=== PATIENT | female | born 1960 | race Caucasian/White ===

== ENCOUNTER → 2016-12-03 | Outpatient (CLI) | payer BC ==
[~2016-12-03] MED LIST: ATOR20TA58 PO; BUPIVACAINE MPF 0.25% 10 ML VIAL. ONE; BUTA1CAP31 PO; CITA10TA4 PO; CITA40TA5 PO; CYCL10TA2 PO; DIAZ2TAB PO; FENO54TA PO; FLECTOR1 EACH TD; HYDR-2165 PO; HYDR-2766 PO; IOHEXOL 180 MG/ML 10 ML VIAL. ONE; TRAM50TA PO; TRAZ50TA15 PO; methylPREDNISolone ACETATE 80 MG/ML VIAL. ONE
--- NOTE | 2016-12-04 04:19 | PAIN ---
DATE OF SERVICE: 12/03/2016 CHIEF COMPLAINT: Left hip joint pain. HISTORY OF PRESENT ILLNESS: This is a 55-year-old female who presents with history of pain in the left hip joint for about 3-4 years, on and off, getting worse over the past 6 months or so. The patient reports this has been increasing with activity, walking, standing, especially climbing stairs, putting all of her weight on one leg or bending down reaching things on her left side. The patient reports it has been getting worse. She has been doing some exercises and stretching, has not had any formal physical therapy or other treatments for training, modalities with physical therapy, but is trying to stay as active as she can, but the pain is beginning to limit her fairly significantly especially with standing and walking, climbing stairs, stepping up on a step from the street, etc. The patient reports the pain is sharp, stabbing, throbbing, changes during the day, worse with activity, intermittent in intensity, stabbing into the left hip and groin, mostly anterior but also into the gluteus with extended standing or walking. The patient reports it is better with lying down, but can awaken her from sleep if she does not take her sleeping medication. The patient reports it does not affect her bowel or bladder control, but does affect her ability to walk; she has been considering using a cane and she has one that she has not had with her today, she is using in her right hand. The patient reports no recent injury or accident. No motor or sensory loss. No bowel or bladder incontinence. The patient rates her disability rating from 0 to 10, 10 being the worst, the 4 with family and home responsibilities and recreation, 3 with social activity and occupation, 10 with sexual behavior, 2 with self care and 0 with life support activities. The patient has tried hydrocodone, tramadol, Fioricet, diclofenac, all of which do help, but only by about 20-25% improvement. The patient did have x-ray showing some significant loss of intra-articular space and advanced degenerative joint disease of the right hip. The patient has seen her orthopedist who is recommending eventual hip replacement. The patient would like to try other modalities first. PAST MEDICAL HISTORY: Significant for arthritis, hypertension, cigarette smoking, quit 20 years ago. PREVIOUS SURGERIES: Include right great toe surgery, oophorectomy, salpingectomy and previous bladder lift, also uterine ablation prior to the hysterectomy. CURRENT MEDICATIONS: Include tramadol, citalopram, hydrocodone, trazodone, cyclobenzaprine, Fiorinal, atorvastatin and fenofibrate. ALLERGIES: The patient has no known drug allergies. FAMILY HISTORY: Significant for heart disease and diabetes. SOCIAL HISTORY: The patient does not smoke, quit many years ago. Drinks only very rarely alcohol. Reports she is currently single, no children living at home and lives with her mother locally in [place], [place]. REVIEW OF SYSTEMS: The patient's review of systems is positive for those items mentioned in history of present illness. All systems reviewed and otherwise negative. It is complete, full and well documented on the patient's chart. PHYSICAL EXAMINATION: VITAL SIGNS: The patient's blood pressure is 140/94, pulse 75, respirations 16, temperature is 98.1 degrees Fahrenheit. Weight is 178 pounds. GENERAL: The patient is awake, alert, oriented, appropriate, is a very pleasant demeanor. HEENT: Head shows normocephalic, atraumatic. Extraocular movements are intact and symmetrical. Oral cavity shows mucous membranes moist and pink. Dentition is intact. NECK: Shows anterior throat is supple without palpable lymphadenopathy noted. Swallow reflex is symmetrical. CHEST: Shows normal on inspection. Breath sounds are clear to auscultation bilaterally. HEART: Shows S1 and S2 clear. No murmurs auscultated. ABDOMEN: Soft, nontender, nondistended. No palpable organomegaly. No rebound or guarding demonstrated. MUSCULOSKELETAL: Back shows spine grossly in the midline. Normal appearing thoracic kyphosis, cervical lordotic curvature and lumbar lordotic curvature. No previous bruises, lesions, rashes or scars are noted. The patient's lower extremity showed deep tendon reflexes 2+ in the patellar, 1+ tendo calcaneus tendons. Motor exam is strong with 5/5 dorsiflexion, extension, quadriceps and hamstring flexion, also mild pain reported with quadriceps flexion on the left, but only minimal. Peripheral pulses are 2+ posterior tibial and dorsalis pedis pulses. No peripheral edema is noted. No clubbing, no cyanosis. Lower extremities are warm and dry to touch, equal in color and appearance. Gaenslen maneuver is negative bilaterally. Jj maneuver, however, is positive with external rotation of the left hip with hip flexion and external deviation with significant pain in the groin itself as well as radiating into the gluteus. Right side is negative Jj test. The patient is able to stand, has no difficulty trying to stand on her toes, not loosing balance. She is walking with a normal appearing gait without significant favoring the right or left lower extremity on a short walk in the office today, again not using a cane with her, but has one she uses in her right hand on occasion. IMPRESSION: 1. This is a 55-year-old female with a 3- to 4-year history of pain, left hip and groin, worse now over the past 6 months or so. 2. Radiological studies, joints, advanced severe degenerative joint disease of the left hip as noted. 3. History of arthritis. 4. Hypertension. PLAN: Options were discussed with the patient including conservative medical management, physical therapy, interventional techniques. She would like to pursue interventional techniques. We discussed an intra-articular joint injection of the left hip joint using description as well as anatomical models to describe the procedure. Risks were then discussed including, but not limited to bleeding, infection, possibility of intravascular injection sequelae, spread of local anesthetic and numbness, exposure to fluoroscopy, side effects of steroid medication and poor results regarding pain control. The patient understands and wishes to proceed. The patient will return to the clinic in approximately 3-4 weeks for a followup. Would like to call for her next appointment as necessary. The patient was encouraged to increase her activity as tolerated and to do nonimpact style aerobics with her left lower extremity such as pool therapies, stationary bicycle or very light walking on level surfaces. The patient understands and will follow up at this time on an as-needed basis. DIAGNOSIS: Primary osteoarthritis, left hip joint. PROCEDURE: Left intra-articular hip joint injection with fluoroscopic guidance under sterile prep and drape using local anesthetic. MEDICATION INJECTED: Total of 80 mg of Depo-Medrol plus total of 3 mL of 0.25% bupivacaine and total of 3 mL of Isovue for contrast. CONDITION AT DISCHARGE: Stable. The patient tolerated procedure well, had no complications. ROSA ISELA CORRIGAN MD DR: REAL/hayden JOB#: [id number] / [id number] WILMA Hinkle MD
== END | disposition home or self-care (01) ==
LOC: PNCL 14:02
PROVIDERS: ATTEND Anesthesiology
DX: M16.12 Unilateral primary osteoarthritis, left hip (principal); I10 Essential (primary) hypertension; Z87.891 Personal history of nicotine dependence; Z83.3 Family history of diabetes mellitus
CPT/HCPCS: 20610; J1040; J3490

== ENCOUNTER → 2017-01-29 | Outpatient (CLI) | payer BC ==
--- NOTE | 2017-01-29 18:52 | PAIN ---
DATE OF SERVICE: 01/29/2017 DIAGNOSIS: Left hip joint pain with primary osteoarthritis of left hip joint. HISTORY OF PRESENT ILLNESS: The patient is a 56-year-old female who returns for followup status post left hip joint injection on 12/03/2016. The patient did very well with this with good significant improvement about 80% initially, now is down to about a 50% improvement level as time is going on. For the past couple of months, the patient reports the pain is becoming much worse. Over the past week, it was at a point where she almost went to the Emergency Department because of the pain, but her daughter had some pain medication, which she borrowed and I was able to decrease the pain enough to wait until today to come in. The patient reports significant pain in the left hip, worse with standing, walking, weightbearing, especially putting weight on one leg such as climbing stairs or stepping up on a curb. The patient reports pain is a 9 on a scale of 10 at its worst, 7 on average, 4 at its least and is a 7 today. The patient reports it is stabbing and sharp, getting unbearable, especially at night when she is lying on her left side and is awakening her from sleep frequently. The patient reports no new motor or sensory deficits; however, no new bowel or bladder incontinence, but still significant pain, again much worse with activity, standing, walking; better with sitting or lying down on her right side by lying flat, no new motor or sensory deficits. PHYSICAL EXAMINATION: VITAL SIGNS: The patient's blood pressure 140/96, pulse 69, respirations 18, temperature 97.7 degrees Fahrenheit, height is 5 feet 8-1/2 inches, weight is 179 pounds. GENERAL: The patient is awake, alert, oriented, appropriate, very pleasant demeanor. HEENT: Head shows normocephalic, atraumatic. Extraocular movements are intact and symmetrical. Oral cavity, mucous membranes are moist and pink. Dentition is intact. NECK: Shows anterior throat supple without palpable lymphadenopathy noted. Swallow reflex is symmetrical. CHEST: Shows normal on inspection. Breath sounds are clear to auscultation bilaterally. HEART: Shows S1 and S2 clear. No murmurs auscultated. ABDOMEN: Soft, nontender, nondistended. No palpable organomegaly is noted. No rebound or guarding demonstrated. BACK: Shows spine grossly in the midline. Lumbar paraspinous muscle shows symmetrical on inspection, palpation shows no significant tenderness. The patient has full rotational motion of lumbar spine, both laterally as well as extension and flexion without difficulty. LOWER EXTREMITIES: Showed deep tendon reflexes at 2+ in the patellar tendons. Motor exam is strong with 5/5 dorsiflexion, extension, quadriceps and hamstring flexion. The patient does still have positive Jj's maneuver on the left with external rotation of the left hip, but not on the right. Peripheral pulses are 1+ posterior tibial. No peripheral edema is noted bilaterally. Options were discussed with the patient and the patient's old chart was reviewed as her current medication regimen updated. Current review of systems is updated today as well. We will proceed with the left intra-articular hip joint injection using C-arm fluoroscopy. Risks were again discussed including, but not limited to bleeding, infection, possibility of intravascular injection sequelae, spread of local anesthetic and numbness, side effects of steroid medications, exposure to fluoroscopy and poor results regarding pain control. The patient understands and wishes to proceed. The patient will return to clinic in approximately 2 weeks or as necessary, would like to call for next appointment. The patient was counseled as to activity levels as well as side effects to be aware of. DIAGNOSIS: Primary osteoarthritis, left hip joint with left hip joint pain. PROCEDURE: Left intra-articular hip joint injection using C-arm fluoroscopic guidance under sterile prep and drape using local anesthetic. MEDICATION INJECTED: A total of 80 mg Depo-Medrol plus 3 mL of 0.25% bupivacaine after negative aspiration and 2 mL of Isovue for contrast. CONDITION AT DISCHARGE: Stable. The patient tolerated procedure well, had no complications. ROSA ISELA CORRIGAN MD DR: REAL/hayden JOB#: [id number] / [id number]
== END | disposition home or self-care (01) ==
LOC: PNCL 08:23
PROVIDERS: ATTEND Anesthesiology
DX: M16.12 Unilateral primary osteoarthritis, left hip (principal)
CPT/HCPCS: 20610; J1040; J3490

== ENCOUNTER → 2017-06-17 | Outpatient (CLI) | payer BC ==
[2017-06-17 09:46] LABS: INR 0.9 (0.8-1.1); PARTIAL THROMBOPLASTIN TIME 32 SEC (24-38); PROTHROMBIN TIME PATIENT 12.1 SEC (11.7-14.0)
[2017-06-17 11:29] LABS: SEDIMENTATION RATE 8 (0-25)
[2017-06-17 11:43] LABS: BILIRUBIN,URINE NEGATIVE (NEG); CLARITY,URINE CLEAR; COLOR,URINE YELLOW; GLUCOSE,URINE 100 mg/dL (NEG); NITRITE,URINE NEGATIVE (NEG); PH,URINE 6.5; PROTEIN,URINE NEGATIVE (NEG-TRACE); UROBILINOGEN,URINE 0.2 mg/dL (0.2 mg/dL)
[2017-06-17 12:03] LABS: BACTERIA,URINE 0 /HPF (0-FEW); RBC,URINE 0 /HPF (0-2); SQUAMOUS EPITHELIAL CELL,UR FEW /LPF; WBC,URINE 0 /HPF (0-4)
[2017-06-18 03:14] LABS: MRSA BY PCR Negative (Negative)
== END | disposition home or self-care (01) ==
LOC: SURGPAT 14:57
DX: Z01.818 Encounter for other preprocedural examination (principal); I10 Essential (primary) hypertension; R94.31 Abnormal electrocardiogram [ECG] [EKG]
CPT/HCPCS: 36415; 71046; 81001; 85610; 85651; 85730; 87641; 93005

== ENCOUNTER 2017-07-02 10:26 | Inpatient (IN) | payer BC ==
[~2017-07-02 10:26] MED LIST changes: -ATOR20TA58 PO; -BUPIVACAINE MPF 0.25% 10 ML VIAL. ONE; -BUTA1CAP31 PO; -CITA10TA4 PO; -CITA40TA5 PO; -CYCL10TA2 PO; +DEXAMETHASONE SOD PHOS 20 MG/5 ML VIAL.; -DIAZ2TAB PO; +FAMOTIDINE 20 MG/2 ML VIAL; -FENO54TA PO; -FLECTOR1 EACH TD; -HYDR-2165 PO; -HYDR-2766 PO; +HYDROcodone/APAP 7.5/325MG 1 TAB TABLET PO; -IOHEXOL 180 MG/ML 10 ML VIAL. ONE; +LIDOCAINE 1% PF 2 ML VIAL. ID; +MIDAZOLAM HCL/PF 2 MG/2 ML VIAL.; +ONDANSETRON PF 4 MG/2 ML VIAL.; +ONDANSETRON PF 4 MG/2 ML VIAL. IV; +PROPOFOL 20 ML IV; -TRAM50TA PO; -TRAZ50TA15 PO; +fentaNYL PF VIAL 100 MCG/2 ML VIAL IV; +fentaNYL PF VIAL 250 MCG/5 ML VIAL; -methylPREDNISolone ACETATE 80 MG/ML VIAL. ONE
[2017-07-02] MEDS: IV RINGERS,LACTATED 1000ML 1,000 ML IV (11:28)
[2017-07-02] MEDS: CELECOXIB 200 MG CAPSULE. PO ×2 (11:28→21:11)
[2017-07-02 11:45] LABS: PARTIAL THROMBOPLASTIN TIME 31 SEC (24-38); PROTHROMBIN TIME PATIENT 12.6 SEC (11.7-14.0)
[2017-07-02] MEDS ORDERED: CALCIUM CARBONATE 500 MG TAB.CHEW PO (12:15)
[2017-07-02] MEDS ORDERED: MORPHINE SULFATE 4 MG/ML DISP.SYRIN. IV ×2 (12:15)
[2017-07-02] MEDS ORDERED: DEXTROSE 50% 25 GM / 50ML DISP.SYRIN. IV (12:15)
[2017-07-02] MEDS ORDERED: PROCHLORPERAZINE 10 MG/2 ML VIAL. IV (12:15)
[2017-07-02] MEDS ORDERED: fentaNYL PF VIAL 100 MCG/2 ML VIAL IV (12:15)
[2017-07-02] MEDS ORDERED: traMADol 50 MG TABLET PO ×2 (12:15)
[2017-07-02] MEDS ORDERED: ACETAMINOPHEN 325 MG TABLET. PO (12:15)
[2017-07-02] MEDS ORDERED: 0.9 % SODIUM CHLORIDE 10 ML DISP.SYRIN. IV (12:15)
[2017-07-02] MEDS ORDERED: ePHEDrine PF IN SALINE 50 MG/5 ML DISP.SYRIN IV (12:29)
[2017-07-02] MEDS: TRANEXAMIC ACID 1,000 MG in IV NS 50ML -- 1ST BAG INJ (12:36)
[2017-07-02] MEDS: MORPHINE SULFATE 5 MG, KETOROLAC 30 MG, ROPIVacaine 0.5% PF 60 ML, EPINEPHrine 0.5 MG i... INT ART (12:39)
[2017-07-02] MEDS ORDERED: SEVOFLURANE > 120 MINUTES. IH (14:09)
[2017-07-02] MEDS ORDERED: fentaNYL PF VIAL 100 MCG/2 ML VIAL ×3 (14:14→15:44)
[2017-07-02] MEDS: TRANEXAMIC ACID 1,000 MG in IV NS 50ML -- 2ND BAG INJ (14:40)
[2017-07-02] MEDS: SENNOSIDES/DOCUSATE 8.6/50MG TABLET. PO (15:00)
[2017-07-02] MEDS ORDERED: MORPHINE SULFATE 10 MG/ML VIAL. (15:13)
[2017-07-02] MEDS: fentaNYL PF VIAL 100 MCG/2 ML VIAL IV ×8 (15:27→23:07)
[2017-07-02] MEDS ORDERED: PROCHLORPERAZINE 10 MG/2 ML VIAL. (15:31)
[2017-07-02] MEDS ORDERED: MORPHINE SULFATE 4 MG/ML DISP.SYRIN. (15:31)
[2017-07-02] MEDS: MORPHINE SULFATE 4 MG/ML DISP.SYRIN. IV (15:41)
[2017-07-02] MEDS: PROCHLORPERAZINE 10 MG/2 ML VIAL. IV (15:41)
[2017-07-02] MEDS: FERROUS SULFATE 325 MG TABLET. PO (17:00)
[2017-07-02] MEDS: WARFARIN 7.5 MG TABLET. PO (17:22)
[2017-07-02] MEDS: FENOFIBRATE 54 MG TABLET. PO (17:22)
[2017-07-02] MEDS: LISINOPRIL 5 MG TABLET. PO (17:23)
[2017-07-02] MEDS: KETOROLAC 30 MG, BUPIVACAINE MPF 0.25% 20 ML, EPINEPHrine 0.5 MG in TOTAL VOLUME SYRING... INT ART (17:24)
[2017-07-02] MEDS: CALCIUM CARB/VIT D3 500/200 TABLET. PO ×2 (21:00→21:11)
[2017-07-02] MEDS: traZODone 50 MG TABLET. PO (21:11)
[2017-07-02] MEDS: ATORVASTATIN CALCIUM 20 MG TABLET PO (21:11)
[2017-07-02] MEDS: diphenhydrAMINE 50 MG/ML VIAL IV (21:11)
[2017-07-02] MEDS: CITALOPRAM 20 MG TABLET. PO (21:11)
[2017-07-02] MEDS: IV DEXTROSE 5 %-0.45 % NACL 1,000 ML IV (22:06)
[2017-07-02] MEDS: ZOLPIDEM 5 MG TABLET. PO (23:03)
[2017-07-03] MEDS: fentaNYL PF VIAL 100 MCG/2 ML VIAL IV ×3 (03:29→21:32)
[2017-07-03] MEDS: KETOROLAC 30 MG, BUPIVACAINE MPF 0.25% 20 ML, EPINEPHrine 0.5 MG in TOTAL VOLUME SYRING... INT ART (05:13)
[2017-07-03 05:55] LABS: INR 1.1 (0.8-1.1)
[2017-07-03] MEDS ORDERED: MAGNESIUM HYDROXIDE 2,400 MG/30 ML ORAL.SUSP. PO (06:00)
[2017-07-03] MEDS: IV DEXTROSE 5 %-0.45 % NACL 1,000 ML IV ×4 (06:34→21:32)
[2017-07-03] MEDS: oxyCODONE/APAP 5/325 1 TAB TABLET PO ×2 (06:39→15:17)
[2017-07-03] MEDS: MULTIVITAMIN with MINERAL TABLET. PO ×2 (08:25→08:50)
[2017-07-03] MEDS: FERROUS SULFATE 325 MG TABLET. PO ×2 (08:25→17:27)
[2017-07-03] MEDS: CHOLECALCIFEROL (VITAMIN D3) 1,000 UNIT TABLET PO (08:26)
[2017-07-03] MEDS: SENNOSIDES/DOCUSATE 8.6/50MG TABLET. PO (08:26)
[2017-07-03] MEDS: CYANOCOBALAMIN (VITAMIN B-12) 1,000 MCG TABLET. PO (08:26)
[2017-07-03] MEDS: CELECOXIB 200 MG CAPSULE. PO ×2 (08:27→21:31)
[2017-07-03] MEDS: CALCIUM CARB/VIT D3 500/200 TABLET. PO ×2 (08:50→21:00)
[2017-07-03] MEDS: FENOFIBRATE 54 MG TABLET. PO (09:00)
[2017-07-03] MEDS: LISINOPRIL 5 MG TABLET. PO (09:00)
[2017-07-03] MEDS: HYDROcodone/APAP 10/325 1 TAB TABLET PO ×2 (09:34→12:53)
[2017-07-03] MEDS ORDERED: BISACODYL 10 MG SUPP.RECT. PR (16:00)
[2017-07-03] MEDS: WARFARIN 5 MG TABLET. PO (17:27)
[2017-07-03] MEDS: oxyCODONE/APAP 7.5/325 1 TAB TABLET PO (19:45)
[2017-07-03] MEDS: ATORVASTATIN CALCIUM 20 MG TABLET PO (21:31)
[2017-07-03] MEDS: traZODone 50 MG TABLET. PO (21:31)
[2017-07-03] MEDS: ALPRAZolam 0.5 MG TABLET PO (21:31)
[2017-07-03] MEDS: CITALOPRAM 20 MG TABLET. PO (21:32)
[2017-07-04] MEDS: oxyCODONE/APAP 7.5/325 1 TAB TABLET PO ×4 (01:22→19:46)
[2017-07-04 05:30] LABS: INR 1.2 (0.8-1.1); PROTHROMBIN TIME PATIENT 15.1 SEC (11.7-14.0)
[2017-07-04 05:31] LABS: HEMATOCRIT 22.7 % (36.0-47.0); HEMOGLOBIN 7.7 g/dL (12.0-15.5); MEAN CORPUSCULAR HGB CONC 34 g/dL (31-37)
[2017-07-04] MEDS: FERROUS SULFATE 325 MG TABLET. PO ×2 (08:34→16:27)
[2017-07-04] MEDS: CELECOXIB 200 MG CAPSULE. PO ×2 (08:34→20:40)
[2017-07-04] MEDS: HYDROcodone/APAP 10/325 1 TAB TABLET PO ×2 (08:34→11:40)
[2017-07-04] MEDS: FENOFIBRATE 54 MG TABLET. PO (08:34)
[2017-07-04] MEDS: SENNOSIDES/DOCUSATE 8.6/50MG TABLET. PO (08:34)
[2017-07-04] MEDS: CHOLECALCIFEROL (VITAMIN D3) 1,000 UNIT TABLET PO (08:34)
[2017-07-04] MEDS: CALCIUM CARB/VIT D3 500/200 TABLET. PO ×3 (08:37→21:00)
[2017-07-04] MEDS: LISINOPRIL 5 MG TABLET. PO (09:00)
[2017-07-04] MEDS: MULTIVITAMIN with MINERAL TABLET. PO (11:40)
[2017-07-04] MEDS: IV DEXTROSE 5 %-0.45 % NACL 1,000 ML IV (14:06)
[2017-07-04] MEDS: CYANOCOBALAMIN (VITAMIN B-12) 1,000 MCG TABLET. PO (14:49)
[2017-07-04] MEDS: fentaNYL PF VIAL 100 MCG/2 ML VIAL IV (16:26)
[2017-07-04] MEDS: WARFARIN 5 MG TABLET. PO (16:27)
[2017-07-04] MEDS: traZODone 50 MG TABLET. PO (20:40)
[2017-07-04] MEDS: ATORVASTATIN CALCIUM 20 MG TABLET PO (20:40)
[2017-07-04] MEDS: CITALOPRAM 20 MG TABLET. PO (20:40)
[2017-07-04] MEDS: ALPRAZolam 0.5 MG TABLET PO (21:21)
[2017-07-05] MEDS: oxyCODONE/APAP 7.5/325 1 TAB TABLET PO ×2 (03:20→06:13)
[2017-07-05 05:35] LABS: HEMATOCRIT 23.7 % (36.0-47.0); HEMOGLOBIN 7.9 g/dL (12.0-15.5); MEAN CORPUSCULAR HGB CONC 34 g/dL (31-37)
[2017-07-05 06:17] LABS: INR 1.2 (0.8-1.1); PROTHROMBIN TIME PATIENT 14.5 SEC (11.7-14.0)
[2017-07-05] MEDS: FERROUS SULFATE 325 MG TABLET. PO ×2 (08:00→08:20)
[2017-07-05] MEDS: POLYETHYLENE GLYCOL 3350 17 GM PACKET. PO (08:19)
[2017-07-05] MEDS: HYDROcodone/APAP 10/325 1 TAB TABLET PO ×3 (08:20→16:12)
[2017-07-05] MEDS: FENOFIBRATE 54 MG TABLET. PO (08:20)
[2017-07-05] MEDS: CELECOXIB 200 MG CAPSULE. PO (08:20)
[2017-07-05] MEDS: SENNOSIDES/DOCUSATE 8.6/50MG TABLET. PO (08:20)
[2017-07-05] MEDS: CHOLECALCIFEROL (VITAMIN D3) 1,000 UNIT TABLET PO ×2 (08:20→08:31)
[2017-07-05] MEDS: MULTIVITAMIN with MINERAL TABLET. PO ×2 (08:21→08:30)
[2017-07-05] MEDS: CYANOCOBALAMIN (VITAMIN B-12) 1,000 MCG TABLET. PO ×2 (08:21→08:30)
[2017-07-05] MEDS: LISINOPRIL 5 MG TABLET. PO (08:31)
[2017-07-05] MEDS: CALCIUM CARB/VIT D3 500/200 TABLET. PO (08:32)
[2017-07-05] MEDS: WARFARIN 7.5 MG TABLET. PO (14:21)
[2017-07-05] MEDS ORDERED: ATORVASTATIN CALCIUM 20 MG TABLET PO (21:00)
== END 2017-07-05 16:44 | disposition home or self-care (01) | DRG 470 ==
LOC: OPSVCIP 10:26 → 4 SOUTHEST 16:23
PROC: 0SRB06Z Replacement of Left Hip Joint with Oxidized Zirconium on Polyethylene Synthetic Substitute, Open Approach (ICD-10-PCS; principal; 2017-07-02 12:00)
DX: M16.12 Unilateral primary osteoarthritis, left hip (principal); Z96.642 Presence of left artificial hip joint
CPT/HCPCS: 36415; 76000; 85014; 85018; 85610; 85730; 86850; 86900; 86901; 88304; 88311; 97116-GP; 97150-GP; 97162-GP; 97166-GO; 97530-GO; 97530-GP; 97535-GO; A7015; C1713; C1887; J0171; J0690; J0780; J1100; J1200; J1885; J2250; J2270; J2405; J2704; J2795; J3010; J3490; J7120; S0028

== ENCOUNTER → 2018-01-06 | Outpatient (CLI) | payer BC ==
[2017-07-05 12:23] VITALS: BP 116/69
[~2018-01-06] MED LIST changes: +ATOR20TA58 PO; +BUTA1CAP31 PO; +CALC-157 PO; +CHOL100013 PO; +CITA10TA4 PO; +CITA40TA5 PO; +CYAN250012 PO; +CYCL10TA2 PO; -DEXAMETHASONE SOD PHOS 20 MG/5 ML VIAL.; +DIAZ2TAB PO; +DICL75TA PO; -FAMOTIDINE 20 MG/2 ML VIAL; +FENO54TA PO; +FERR325T14 PO; +FLECTOR1 EACH TD; +GLUC100018 PO; +HYDR-2165 PO; +HYDR-2766 PO; -HYDROcodone/APAP 7.5/325MG 1 TAB TABLET PO; -LIDOCAINE 1% PF 2 ML VIAL. ID; +LISI-338 PO; -MIDAZOLAM HCL/PF 2 MG/2 ML VIAL.; +MULT-460 PO; +OMEG1CAP6 PO; -ONDANSETRON PF 4 MG/2 ML VIAL.; -ONDANSETRON PF 4 MG/2 ML VIAL. IV; +OXYC-323 PO; -PROPOFOL 20 ML IV; +TRAM50TA PO; +TRAZ-85 PO; +UBID50TA PO; +WARF7.5T48 PO; -fentaNYL PF VIAL 100 MCG/2 ML VIAL IV; -fentaNYL PF VIAL 250 MCG/5 ML VIAL
--- NOTE | 2018-01-07 08:50 | KCIC ---
MRI of the lumbar spine without contrast 01/06/2018 CLINICAL HISTORY: Low back pain which radiates down both legs. TECHNIQUE: Unenhanced T1-weighted and T2-weighted sagittal and axial and inversion recovery sagittal images of the lumbar spine were obtained. FINDINGS: Comparison study is dated 12/10/2013. Minimal S-shaped curvature of the thoracolumbar spine is seen. Degenerative signal changes and loss of height are seen involving the L5-S1 disc. Degenerative signal changes are seen within the marrow surrounding this disc. The conus medullaris is normal morphology, position, and signal characteristics. At the L1-2, L2-3, L3-4 and L4-5 disc spaces there are minimal to mild generalized disc bulges. Degenerative changes are seen involving the facet joints bilaterally. There is mild to moderate ligamentum flavum hypertrophy bilaterally. These findings do not result in significant central spinal canal or neural foraminal stenosis. At the L5-S1 disc space there is a mild to moderate generalized disc bulge. This is eccentric to the right. Superimposed on this disc bulge is a central/right paracentral focal disc protrusion. This measures 5 mm in AP diameter. It extrudes slightly inferiorly. Degenerative changes are seen involving the facet joints bilaterally. There is mild ligamentum flavum hypertrophy bilaterally. These findings when combined result in mild to moderate right greater than left central spinal canal stenosis. Mild to moderate right greater than left neural foraminal stenosis is seen. Since the previous examination there has been no significant interval change. IMPRESSION: The changes of degenerative disc disease are seen involving the lumbar spine. These findings result in mild to moderate right greater than left central spinal canal stenosis and mild to moderate right greater than left neural foraminal stenosis at L5-S1. Electronically signed by: Kranthi Antonio MD (01/07/2018 8:47 AM) [id number]
== END | disposition home or self-care (01) ==
LOC: KCIC MRI 17:41
PROVIDERS: ATTEND Orthopaedic Surgery
DX: M51.36 Other intervertebral disc degeneration, lumbar region (principal); M48.07 Spinal stenosis, lumbosacral region; M54.40 Lumbago with sciatica, unspecified side
CPT/HCPCS: 72148

== ENCOUNTER → 2020-12-06 | Outpatient (CLI) | payer BC ==
[2017-07-05 12:23] VITALS: BP 116/69
[~2020-12-06] MED LIST changes: -HYDR-2165 PO; -HYDR-2766 PO; +HYDR-2769 PO; +HYDR-3070 PO; -LISI-338 PO; +LISI-517 PO; -OXYC-323 PO; +OXYC1TAB15 PO; +TRAZ-118 PO; -TRAZ-85 PO
--- NOTE | 2020-12-07 08:36 | KCIC ---
EXAM: Bilateral carotid duplex with waveform analysis. CLINICAL HISTORY: EVALUATE FOR STENOSIS OF CAROTID ARTERY. Carotid artery atherosclerotic disease. TECHNIQUE: Longitudinal and transverse sonographic images of the bilateral carotid arteries was perfo rmed utilizing grayscale, color and spectral Doppler techniques. COMPARISON: None FINDINGS: Right Carotid: Atherosclerotic plaque is present. Left Carotid: Atherosclerotic plaque is present Vertebrals: Antegrade flow bilaterally. Right: PSV CCA (cm/s): 68 PSV ICA (cm/s): 90 EDV ICA (cm/s): 35 PSV ECA (cm/s): 82 ICA/CCA Ratio: 1.1 Left: PSV CCA (cm/s): 70 PSV ICA (cm/s): 78 EDV ICA (cm/s): 40 PSV ECA (cm/s): 80 ICA/CCA Ratio: 0.9 IMPRESSION: ICA velocities consistent with less than 50 percent stenosis bilaterally Consensus Panel Coats-scale and Doppler US Criteria for Diagnosis of ICA Stenosis Degree of Stenosis (%) ICA PSV (Cm/sec) Plaque Estimate (%)* Normal <125 None <50 <125 <50 50-69 125-230 >50 >70 but < near occlusion >230 >50 Near occlusion High, low, or undetectable Visible Total occlusion Undetectable Visible, no detectable lumen *Plaque estimate (diameter reduction) with coats-scale and color Doppler US Degree of Stenosis (%) ICA/CCA PSV Ratio ICA EDV (cm/sec) Normal <2.0 <40 <50 <2.0 <40 50-69 2.0-4.0 40-100 >70 but < near occlusion >4.0 >100 Near occlusion Variable Variable Total occlusion Not applicable Not applicable Electronically signed by: Bertin Willingham MD (12/07/2020 8:34 AM) [id number]
== END ==
LOC: KCIC US 13:16
PROVIDERS: ATTEND Family Medicine
DX: I65.29 Occlusion and stenosis of unspecified carotid artery (principal); I65.23 Occlusion and stenosis of bilateral carotid arteries
CPT/HCPCS: 93880

== ENCOUNTER → 2021-04-26 | Outpatient (CLI) | payer BC ==
[2017-07-05 12:23] VITALS: BP 116/69
[~2021-04-26] MED LIST changes: -CITA10TA4 PO; +CITA10TA5 PO; -CITA40TA5 PO; +CITA40TA6 PO; +CYCL10TA19 PO; -CYCL10TA2 PO; -LISI-517 PO; +LISI5TAB15 PO
--- NOTE | 2021-04-26 16:11 | KCIC ---
Bilateral digital screening mammograms: Reason for examination: Routine screening. Comparison is made to previous studies dated 02/14/2015 and 12/24/2013. Interpretation was made with the benefit of CAD. The skin and nipples show no abnormalities. No abnormal axillary lymph nodes are seen. The breast par enchyma shows scattered fibroglandular density. (Breast density: Category B.) There are small intrama mmary lymph nodes again seen in the right breast. There are no new dominant masses, suspicious calcif ications or architectural distortions. Impression: No evidence of malignancy. Recommend routine screening. BI-RADS Category 2: Benign. "Our facility is accredited by the [employer] Mammography Program." This patient's information has been entered into a reminder system for the patient to be notified wit h the results of her examination and a target date for the next mammogram. Electronically signed by: Ondina Rollins MD (04/26/2021 4:08 PM) [id number]
== END ==
LOC: KCIC MAMMO 13:49
PROVIDERS: ATTEND Obstetrics & Gynecology
DX: Z12.31 Encounter for screening mammogram for malignant neoplasm of breast (principal)
CPT/HCPCS: 77067